=== PATIENT | female | born 1970 ===

== ENCOUNTER → 2024-08-10 | Outpatient (CLI) | payer BC ==
--- NOTE | 2024-08-10 12:08 | CT ---
EXAMINATION TYPE: CT soft tissue neck w con DATE OF EXAM: 08/10/2024 8:40 AM COMPARISON: None HISTORY: Chronic sialadenitis, RT side CT DLP: 595.80 mGycm Automated exposure control for dose reduction was used. CONTRAST: CT scan of the neck is performed following with IV Contrast, patient injected with 100 mL of Isovue 3 00. Axial images are obtained, coronal and sagittal reformatted images are reviewed. FINDINGS: Airway: No gross abnormality seen. Parotid/submandibular glands: No gross abnormality seen. Carotid/Vascular Structures: Atherosclerotic changes with no definite significant stenosis Osseous Structures: Multilevel hypertrophic and degenerative change of the cervical spine. Other: There are scattered borderline lymph nodes in the soft tissue compartments of the neck bilater ally. IMPRESSION: 1. No evidence of sialoadenitis. 2. Nonspecific borderline lymphadenopathy within the soft tissue compartments of the neck possibly re active. Correlate clinically. [facility], , 08/10/2024 12:06 PM
== END | disposition home or self-care (01) ==
LOC: RADCTMAIN 07:57
PROVIDERS: ATTEND Otolaryngology
DX: K11.23 Chronic sialoadenitis
CPT/HCPCS: 70491